=== PATIENT | female | born 1970 | race Caucasian/White ===

== ENCOUNTER 2017-02-15 07:22 | Observation (INO) | payer OTHER ==
[2017-02-06 13:47] LABS: BASOPHILS 0.4 %; BASOPHILS ABSOLUTE 0.02 10/3/uL (0.0-0.16); EOSINOPHILS 0.5 %; EOSINOPHILS ABSOLUTE 0.03 10/3/uL (0.0-0.53); HEMATOCRIT 41.8 % (36.0-48.0); HEMOGLOBIN 14.3 g/dL (12.0-16.0); LYMPHOCYTES 36.5 %; LYMPHOCYTES ABSOLUTE 2.05 10/3/uL (0.67-4.30); MEAN CORPUSCULAR HEMOGLOB 30.1 pg (26.0-34.0); MEAN PLATELET VOLUME 9.8 fL (9.2-13.0); MONOCYTES ABSOLUTE 0.39 10/3/uL (0.21-1.20); NEUTROPHILS 55.6 %; NEUTROPHILS ABSOLUTE 3.12 10/3/uL (2.02-8.40); PLATELET COUNT 202 10/3/uL (150-400); RBC DISTRIBUTION WIDTH 12.2 % (12.0-16.0); RED CELL COUNT 4.75 10/6/uL (4.0-5.6); WHITE BLOOD CELLS 5.6 10/3/uL (4.5-10.5)
[2017-02-06 13:50] LABS: PFA (COL/EPI) 124 SEC (72-180)
[2017-02-06 13:54] LABS: MANUAL DIFF NO %; MEAN CORPUS HGB CONC 34.2 g/dL (32.0-36.0); PARTIAL THROMBO TIME 29.4 SEC (22.5-37.2); PROTIME (NOT ORD) 13.4 SEC (12.0-14.5)
[2017-02-06 14:02] LABS: A/G RATIO 1.3 (0.7-1.9); ALBUMIN 4.2 G/DL (3.5-5.0); ALKALINE PHOSPHATASE 59 U/L (45-117); BUN (BLOOD UREA NITROGEN) 12 MG/DL (6-23); CALCIUM, SERUM 8.9 MG/DL (8.5-10.4); CHLORIDE, SERUM 102 MMOL/L (96-112); CO2 (CARBON DIOXIDE) 32 MMOL/L (24-34); CREATININE 0.67 MG/DL (0.55-1.02); GFR AFRICAN AMERICAN 121 ML/MIN (>=60); GFR NON AFRICAN AMERICAN 105 ML/MIN (>=60); GLOBULIN 3.2 G/DL (2.5-4.1); GLUCOSE, SERUM 80 MG/DL (60-99); POTASSIUM, SERUM 3.5 MMOL/L (3.5-5.3); SGOT(AST) 19 U/L (5-40); SGPT(ALT) 20 U/L (5-65); SODIUM, SERUM 143 MMOL/L (135-148); TOTAL BILIRUBIN 0.5 MG/DL (0-1.2); TOTAL PROTEIN 7.4 G/DL (6.0-8.5)
--- NOTE | ~2017-02-15 | OP ---
Record Of Operation [facility] [address] [place]. [address] NAME: CLEMENT BLUE : 68 STATUS : DIS Jena PAT#: [id number] AGE: 46 ADM/REG DATE : 02/15/17 MR#: [id number] REPORT SERV DATE: 02/16/17 DICTATED BY: GARY DANIEL DATE: 02/16/17 REPORT STATUS : Draft TRANSCRIBED BY: SCOTT DATE: 02/16/17 DATE OF PROCEDURE: 02/15/2017 PREOPERATIVE DIAGNOSIS: Surgical absence of the breast. POSTOPERATIVE DIAGNOSIS: Surgical absence of the breast. PROCEDURE: Bilateral tissue expansion, acellular dermal matrix reconstruction of inframammary crease, nipple-areolar sparing mastectomy. INDICATIONS AND FINDINGS OF THE PROCEDURE: This is a 46-year-old female who presents with breast cancer. She is appropriate for a nipple-areolar complex sparing mastectomy and immediate reconstruction. DETAILS OF THE PROCEDURE: The patient presents on the operating table after bilateral circumvertical mastectomies. First, our attention was turned to the right. The pectoralis muscle was then released. An appropriately reconstituted sheet of acellular dermal matrix was then sewn to the cut edge of the pectoralis muscle. The purpose of the acellular dermal matrix was to supplement the soft tissue envelope, recreate the inframammary crease, and stabilize the position of the tissue rivet heater gas. A 700 mL Ant implant was then prepped on the back table, placed into the pocket created by the pectoralis muscle and acellular dermal matrix inferiorly and it was secured to the inframammary crease. The acellular dermal matrix was then sewn tightly around its edge. The implant was filled to 350. She was thoroughly irrigated with Hibiclens solution. Inferior drains were then placed and the nipple-areolar complex was positioned appropriately with a marionette stitch. She was then closed with a progressive tension closure of multiple layers of 3-0 PDS and 3-0 Monocryl through to an intracuticular in the skin. Please note that the patient had received a pectoralis nerve block by Anesthesia prior to surgery. Our attention was then turned contralaterally where a similar procedure was carried out. AlloDerm was then used to sew to the released pectoralis muscle for an identical reason. An identical tissue rivet heater gas was then placed behind the muscle AlloDerm construct. The AlloDerm was secured to the chest wall and she was then filled to 350. She was irrigated with Hibiclens solution, drained, the nipple-areolar complex was stabilized with the marionette stitch and then she was closed with multiple layers of 3-0 PDS and Monocryl through to an intracuticular in the skin. She was cleansed with peroxide, nitro paste, dry dressings were placed. The drains were set to suction. She was remanded to the recovery room in stable condition. All sponge and needle counts were correct. LILIAN/SCOTT Gary Daniel M.D. / [id number] Record Of Operation [address] [address] NAME: CLEMENT BLUE : 68 STATUS : DIS Jena PAT#: [id number] AGE: 46 ADM/REG DATE : 02/15/17 MR#: [id number] REPORT SERV DATE: 02/16/17 DICTATED BY: GARY DANIEL DATE: 02/16/17 REPORT STATUS : Draft TRANSCRIBED BY: SCOTT DATE: 02/16/17 CC: Maranda Hernandez MD
--- NOTE | ~2017-02-15 | OP ---
Record Of Operation [facility] [address] [place]. [address] NAME: CLEMENT BLUE : 68 STATUS : ADM Jena PAT#: [id number] AGE: 46 ADM/REG DATE : 02/15/17 MR#: [id number] REPORT SERV DATE: 02/16/17 DICTATED BY: YOLY HANCOCK DATE: 02/15/17 REPORT STATUS : Draft TRANSCRIBED BY: MODRashad DATE: 02/15/17 DATE OF PROCEDURE: 02/15/2017 PREOPERATIVE DIAGNOSIS: Right breast invasive ductal cancer. POSTOPERATIVE DIAGNOSIS: Right breast invasive ductal cancer. PROCEDURES: 1. Left breast prophylactic nipple sparing mastectomy through an inframammary crease incision. 2. Right breast nipple sparing mastectomy through an inframammary crease incision. 3. Right axillary sentinel lymph node biopsy. INDICATION FOR THE PROCEDURE: Ms. Blue is a 46-year-old healthy female who, on screening breast ultrasound, was noted to have a lesion behind her right nipple at the 3 o'clock position. Biopsy was performed under ultrasound guidance in my office showing a grade 1 invasive ductal cancer, ERPR positive, HER2-negative with a gross fraction of 5%. MRI shows that the lesion is approximately 1 to 1.5 cm. There is no additional issues on either side. Genetic testing was negative. The patient is strongly motivated for a bilateral mastectomy. She is a good candidate for a nipple-sparing approach through an inframammary crease incision. I believe the hidden scar approach will give us the best cosmesis. The patient presented for lymphoscintigraphy scan earlier today showing good uptake in the right axilla. OPERATIVE FINDINGS: After appropriate consent was noted on the chart, the patient was taken to the operating room in supine position. She was placed under general anesthesia without any complications. Gamma probe was placed in the right axilla and good uptake noted. Methylene blue was not utilized. Lines of incision had been drawn on the patient's skin by Plastic surgery. These incisions were utilized. Incision was made in the inframammary crease on the right side with a 15 blade. Sharp dissection carried down to the level of the pectoralis major muscle and the posterior flap created first. PlasmaBlade was utilized to dissect the breast tissue and fascia off the pectoralis major muscle all the way up to the extent of breast parenchyma in all directions. Following this, the anterior dissection was performed carefully. The dissection was carried out behind the nipple and an additional piece of tissue taken directly behind the nipple for additional margin. The rest was taken from the cavity en block. It was divided from the axillary fat pad and the axillary tail was marked with sutures. There was a vague palpable finding at the 3 o'clock position below the areola which I expect is the known cancer. The right axillary sentinel node biopsy was performed in routine fashion. The gamma probe was utilized to find a single sentinel lymph node which was soft and non bulky. Ex Vivo count was approximately 5000. It was evaluated by Pathology and noted to be negative for malignancy. The wound was copiously irrigated with warm saline. Hemostasis achieved. Wet lap sponge was placed. The left mastectomy was performed in a very similar fashion. Incision made in the inframammary crease with a 15 blade. Sharp dissection carried down to the level of the pectoralis muscle and the posterior flap created first with plasma blade. The anterior flap was then created following this with careful dissection behind the nipple. The breast was divided from the axillary fat pad of the axillary tail and sent for permanent pathology with marking stitches. The Record Of Operation [facility] [id number] [place]. [address] NAME: CLEMENT BLUE : 68 STATUS : ADM Jena PAT#: [id number] AGE: 46 ADM/REG DATE : 02/15/17 MR#: [id number] REPORT SERV DATE: 02/16/17 DICTATED BY: YOLY HANCOCK DATE: 02/15/17 REPORT STATUS : Draft TRANSCRIBED BY: MODL DATE: 02/15/17 wound was copiously irrigated once again. Hemostasis was achieved. A wet lap sponge was placed. Dr. Daniel's team came in at this point for the bilateral reconstructive efforts. Please see his notes for further details. At the end of my portion of the case, the estimated blood loss was 100 mL. COMPLICATIONS: None. SPECIMEN: Bilateral breast and right sentinel lymph node x1. JAQUELINE/SCOTT Yoly Hancock MD / [id number] CC: Yoly Hancock MD [facility] Parth Daniel M.D. Helga Oliveira M.D. COREY Yo
[~2017-02-15 07:22] MED LIST: ACET500CAP PO; ALEVE220 MG PO; ASAB PO; FISH-EPA1000 MG PO; VITAMIN B COMPLEX PO; VITAMIN D31000 UNIT PO
[2017-02-16] MEDS ORDERED: AT25 PO (13:02)
[2017-02-16] MEDS ORDERED: K500 PO (13:03)
[2017-02-16] MEDS ORDERED: ULTRAM50 PO (13:03)
[2017-06-14] MEDS ORDERED: EFFEXXR75 PO (17:28)
[2017-06-14] MEDS ORDERED: BEN25 PO (17:29)
[2017-06-14] MEDS ORDERED: ARIMIDEX1 PO (17:29)
== END 2017-02-16 13:54 | disposition home or self-care (01) ==
LOC: SDC 07:22 → 4EA 17:40
PROVIDERS: Surgery Surgery of the Hand; Surgery Surgical Oncology
PROC: 0HHV0NZ Insertion of Tissue Expander into Bilateral Breast, Open Approach (ICD-10-PCS; 2017-02-15)
PROC: 07B50ZX Excision of Right Axillary Lymphatic, Open Approach, Diagnostic (ICD-10-PCS; 2017-02-15)
PROC: 0HHV0NZ Insertion of Tissue Expander into Bilateral Breast, Open Approach (ICD-10-PCS; principal; 2017-02-15 11:15)
PROC: 0HTV0ZZ Resection of Bilateral Breast, Open Approach (ICD-10-PCS; 2017-02-15 11:15)
DX: C50.011 Malignant neoplasm of nipple and areola, right female breast (principal); Z90.710 Acquired absence of both cervix and uterus; Z98.890 Other specified postprocedural states; Z88.8 Allergy status to other drugs, medicaments and biological substances
CPT/HCPCS: 71020; 78195; 80053; 85025; 85576; 85610; 85730; 88305; 88307; 88331; 88342; 93005; 96374; 96375; 96376; A9270-GY; A9541; C1769; C1789; G0378; J0690; J1170; J1885; J2250; J2270; J2405; J2710; J2795; J3010; Q4116